=== PATIENT | female | born 1970 | race Caucasian/White ===

== ENCOUNTER → 2021-04-16 | Outpatient (CLI) | payer OTHER ==
--- NOTE | 2021-04-16 12:09 | REP ---
INDICATION: F/U PULMONARY NODULE. COMPARISON: I have only reported on outside CT dated 03/28/2020. TECHNIQUE: Noncontrast scanning through the chest with coronal and sagittal reconstructions. FINDINGS: Study again shows a 6.6 mm pleural based nodule medial segment right middle lobe abutting the mediastinal pleura adjacent the right heart border which is a description of location and size for this nodule on the previous CT remainder of the right middle lobe is unremarkable. There is some curvilinear atelectatic and or fibrotic change deep sulcus right and left lower lobes. Remainder lung marina show no other nodules, infiltrates, ground-glass opacities, pleural thickening, calcified pleural plaque or parenchymal mass. Heart is not enlarged. There is no pericardial thickening or effusion. Small amount of fluid in the superior pericardial recess seen. No pathologic sized mediastinal, hilar, axillary or supraclavicular adenopathy/mass. Trace amount of pericardial thickening anteriorly as described in the previous report gastric bypass stapling in the upper abdomen. No definite hiatal hernia. Portion of liver and spleen included were unremarkable. That portion of gallbladder and pancreas seen were intact adrenal glands are normal. Upper poles of kidneys as seen were unremarkable. Bone windows show marginal osteophytes throughout mid and upper thoracic spine without compression deformity or destructive lesion. The sternum, manubrium, visualized portions of clavicles, scapula, humeral heads and ribs were unremarkable. IMPRESSION: 1. Stable pleural-based 7 mm right middle lobe nodule medial segment the abutting the mediastinal pleura along the right heart border. It is unchanged for 1 year a by description of the CT last year. There is some curvilinear fibro atelectatic change deep sulcus lower lobes without any other significant parenchymal lung findings. 2. Some minor pericardial thickening unchanged from 1 year ago. No adenopathy or mass in the mediastinal hilar and axillary regions. No other significant or acute finding. 3. Given the stability for 1 year in this nodule, it is considered to have benign appearance or behavior. If patient has high risk for development of lung malignancy (smoker), follow-up low-dose lung CT screening recommended. Another CT may be considered in the 18-24 months for patients at low risk of malignancy according to [employer] recommendations for follow-up pulmonary nodules. <Electronically signed by Hubert Ochoa > 04/16/21 [id number]
== END ==
LOC: M PLAIMG 10:42 → EDBD 11:15
PROVIDERS: ATTEND Nurse Practitioner Family
DX: R91.1 Solitary pulmonary nodule (principal)

== ENCOUNTER → 2022-04-10 | Outpatient (CLI) | payer OTHER | LOC: M WUC 15:14 | PROVIDERS: ATTEND Internal Medicine Rheumatology | DX: R76.8 Other specified abnormal immunological findings in serum (principal); M35.3 Polymyalgia rheumatica; R53.1 Weakness; R20.0 Anesthesia of skin; H53.9 Unspecified visual disturbance; R39.89 Other symptoms and signs involving the genitourinary system; R13.10 Dysphagia, unspecified; G47.09 Other insomnia; M62.838 Other muscle spasm; R26.89 Other abnormalities of gait and mobility; R41.3 Other amnesia; R19.8 Other specified symptoms and signs involving the digestive system and abdomen ==